=== PATIENT | male | born 1970 | race Caucasian/White ===

== ENCOUNTER 2021-12-31 07:11 | Outpatient (CLI) | payer BC | END 2021-12-31 07:20 | disposition home or self-care (01) | LOC: LAB 07:11 | PROVIDERS: ATTEND General Practice | DX: Z00.8 Encounter for other general examination (principal); R03.0 Elevated blood-pressure reading, without diagnosis of hypertension; Z12.11 Encounter for screening for malignant neoplasm of colon; Z12.5 Encounter for screening for malignant neoplasm of prostate; M79.672 Pain in left foot; E66.3 Overweight; E78.2 Mixed hyperlipidemia; S42.141A Displaced fracture of glenoid cavity of scapula, right shoulder, initial encounter for closed fracture; S42.151A Displaced fracture of neck of scapula, right shoulder, initial encounter for closed fracture; Z98.890 Other specified postprocedural states; Z87.81 Personal history of (healed) traumatic fracture ==

== ENCOUNTER 2022-10-08 10:31 | Outpatient (CLI) | payer BC | END 2022-10-08 10:39 | disposition home or self-care (01) | LOC: RAD 10:31 | DX: M72.2 Plantar fascial fibromatosis (principal); M41.80 Other forms of scoliosis, site unspecified; M54.2 Cervicalgia; M54.6 Pain in thoracic spine; M54.59 Other low back pain; F52.21 Male erectile disorder ==